=== PATIENT | female | born 1935 | race Caucasian/White ===

== ENCOUNTER 2016-05-09 20:31 | Emergency (ER) | payer OTHER, MEDICARE ==
[~2016-05-09] VITALS: Ht 170.2 cm; Wt 75.5 kg
[~2016-05-09 20:31] MED LIST: ASPIRIN EC325 MG PO; ASPIRIN81 M2 PO; ATORVASTATIN CA40 MG PO; BACTRIM,SEPT1 TABLET PO; CALCIUM + VITA1 EACH PO; CALCIUM CARB1 TABLET PO; CARAFATE1 GM PO; CIPRO500 MG PO; CIPROFLOXACIN500 M1 PO; DILAUDID2 MG PO; DOCUSATE SODIU100 MG PO; EDARBI80 MG PO; FENTANYL1 EAC1 TD; GABAPENTIN300 MG PO; IRBESARTAN150 MG PO; LOSARTAN POTAS100 MG PO; LOVENOX40 MG/0.4 SC; METRONIDAZOLE500 MG PO; MILK OF MAGNESI10 ML PO; MULTI-B-PLUS1 EACH PO; OXYCODONE HCL5 MG PO; PANTOPRAZOLE SO40 MG PO; POLYETHYLENE GL17 GM PO; PRAVASTATIN SOD80 MG PO; RANITIDINE HCL75 MG PO; REMOVE DURAGESIC TD; SENNA-TIME S T1 EACH PO; ST. JOSEPH ASPI81 MG PO; THERAGRAN1 TABLET PO; ZANTAC75 M1 PO; ZOFRAN4 MG PO; ZOFRAN4 MG/2 ML IV
[2016-05-09 20:57] LABS: HEMATOCRIT 42.7 % (36.0-46.0); MCH 29.9 PG (29.0-34.0); MCHC 33.7 G/DL (30.0-36.0); MCV 88.8 FL (83-99); MEAN PLAT.VOLUME 10.4 uM^3 (9.5-12.4); PLATELET COUNT 245 K/uL (156-360); RBC DIS.WIDTH-CV 13.4 % (11.8-14.6); RBC DIS.WIDTH-SD 42.7 % (39-53); RED BLOOD COUNT 4.81 M/uL (3.80-5.20); WHITE BLOOD COUNT 6.9 K/uL (4.1-10.2)
[2016-05-09 21:05] LABS: CHLORIDE 104 mEq/L (99-109); POTASSIUM 3.7 mEq/L (3.7-5.4); SODIUM 139 mEq/L (136-147)
[2016-05-09 21:07] LABS: GLUCOSE 110 mg/dL (70-99)
[2016-05-09 21:09] LABS: ANION GAP 11 MEQ/L (2-14)
[2016-05-09 21:11] LABS: ALKALINE PHOSPHATASE 81 IU/L (3-129); GFR ESTIMATE (CALCULATED) > 59 mL/min/
[2016-05-09 21:12] LABS: UREA NITROGEN (BUN) 11 mg/dL (9-23)
[2016-05-09 21:39] LABS: TROP-I INTERPRETATION NEGATIVE; TROPONIN-I < 0.01 ng/mL (0.0-0.30)
[2016-05-09 22:12] LABS: ADD MIUA? YES; BILIRUBIN NEGATIVE; BLOOD NEGATIVE; COLOR YELLOW ((YELLOW)); GLUCOSE (STRIP) NEGATIVE; KETONES NEGATIVE; LEUKOCYTES NEGATIVE; NITRITE NEGATIVE; PROTEIN (STRIP) NEGATIVE; SPECIFIC GRAVITY 1.005 (1.000-1.030); UROBILINOGEN 0.2 MG/DL (0.2-1.0)
[2016-05-09 22:18] LABS: TOTAL BILIRUBIN 0.8 MG/DL (0.0-1.0)
[2016-05-09 22:35] LABS: BACTERIA 2+; CASTS NONE SEEN /LPF; CRYSTALS NONE SEEN; EPITHELIAL CELLS 3+; MUCUS NONE SEEN; RED BLOOD CELLS 0-5 /HPF (0-5); UCUL ADDED? NO; WHITE BLOOD CELLS 0-5 /HPF (0-5)
[2016-05-09] MEDS ORDERED: KEFLEX500 MG PO (23:52)
[2016-05-10 00:34] VITALS: BP 121/54
[2016-05-10] MEDS ORDERED: REGLAN10 MG PO (10:45)
== END 2016-05-10 00:35 | disposition home or self-care (01) ==
LOC: EME → EDBD 20:31 → EME 05-10 00:35
DX: N39.0 Urinary tract infection, site not specified (principal); E86.0 Dehydration; R11.0 Nausea; E78.5 Hyperlipidemia, unspecified; I10 Essential (primary) hypertension; Z86.73 Personal history of transient ischemic attack (TIA), and cerebral infarction without residual deficits; Z96.652 Presence of left artificial knee joint
CPT/HCPCS: 74176; 80053; 81003; 84484; 85027; 93005; 99281; 99285; J2270; J2405; J7030

== ENCOUNTER 2016-06-11 18:32 | Emergency (ER) | payer OTHER, MEDICARE ==
[~2016-06-11] VITALS: Ht 170.2 cm; Wt 72.0 kg
[~2016-06-11 18:32] MED LIST changes: +KEFLEX500 MG PO; +REGLAN10 MG PO
[2016-06-11 19:09] LABS: MCH 30.7 PG (29.0-34.0); MCHC 34.9 G/DL (30.0-36.0); MCV 87.9 FL (83-99); MEAN PLAT.VOLUME 11.3 uM^3 (9.5-12.4); PLATELET COUNT 274 K/uL (156-360); RBC DIS.WIDTH-CV 14.2 % (11.8-14.6); RBC DIS.WIDTH-SD 44.8 % (39-53); RED BLOOD COUNT 4.89 M/uL (3.80-5.20); WHITE BLOOD COUNT 7.6 K/uL (4.1-10.2)
[2016-06-11 19:16] LABS: POTASSIUM ND MEQ/L (3.7-5.4)
[2016-06-11 19:30] LABS: CHLORIDE 105 mEq/L (99-109); SODIUM 138 mEq/L (136-147)
[2016-06-11 19:31] LABS: GLUCOSE 103 mg/dL (70-99)
[2016-06-11 19:33] LABS: ANION GAP 11 MEQ/L (2-14)
[2016-06-11 19:35] LABS: GFR ESTIMATE (CALCULATED) > 59 mL/min/
[2016-06-11 19:36] LABS: UREA NITROGEN (BUN) 9 mg/dL (9-23)
[2016-06-11 19:58] LABS: BILIRUBIN NEGATIVE; BLOOD NEGATIVE; COLOR YELLOW ((YELLOW)); GLUCOSE (STRIP) NEGATIVE; KETONES 5; LEUKOCYTES NEGATIVE; NITRITE NEGATIVE; PROTEIN (STRIP) NEGATIVE; SPECIFIC GRAVITY 1.006 (1.000-1.030); UROBILINOGEN 0.2 MG/DL (0.2-1.0)
[2016-06-11 20:08] LABS: ADD MIUA? YES; UCUL ADDED? NO
[2016-06-11 20:09] LABS: BACTERIA 3+ /HPF; CASTS NONE SEEN /LPF; CRYSTALS NONE SEEN; EPITHELIAL CELLS 1+ /HPF; MUCUS TRACE /LPF; RED BLOOD CELLS 0-5 /HPF (0-5); WHITE BLOOD CELLS 0-5 /HPF (0-5)
[2016-06-11 20:30] LABS: POTASSIUM 3.9 mEq/L (3.7-5.4)
[2016-06-11] MEDS ORDERED: ATIVAN0.5 MG PO (22:46)
[2016-06-11 23:14] VITALS: BP 118/68
== END 2016-06-11 23:15 | disposition home or self-care (01) ==
LOC: EME 18:32
PROVIDERS: Emergency Medicine
DX: R11.2 Nausea with vomiting, unspecified (principal); E78.5 Hyperlipidemia, unspecified; I10 Essential (primary) hypertension; Z86.73 Personal history of transient ischemic attack (TIA), and cerebral infarction without residual deficits
CPT/HCPCS: 80048; 81003; 84999; 85027; 99281; 99285; J2060; J2405; J7030

== ENCOUNTER 2016-07-24 08:25 | Observation (INO) | payer OTHER, MEDICARE ==
[~2016-07-24] VITALS: Ht 165.1 cm; Wt 67.2 kg
[~2016-07-24 08:25] MED LIST changes: +ATIVAN0.5 MG PO
[2016-07-24 09:53] LABS: EOSINOPHIL (%) 0.9 % (0-5); EOSINOPHIL COUNT 0.1 K/uL (0-0.3); HEMATOCRIT 42.6 % (36.0-46.0); IMMATURE GRANULOCYTE (%) 0.4 % (0.0-0.7); INSTRUMENT ABS NEUTROPHIL CT 3.7 K/uL; LYMPHOCYTE COUNT 1.5 K/uL (1.0-2.8); MCH 30.3 PG (29.0-34.0); MCHC 33.1 G/DL (30.0-36.0); MCV 91.4 FL (83-99); MEAN PLAT.VOLUME 10.5 uM^3 (9.5-12.4); MONOCYTE (%) 4.3 % (3-12); MONOCYTE COUNT 0.2 K/uL (0-0.8); NEUTROPHIL COUNT 3.7 K/uL (1.8-6.4); PLATELET COUNT 280 K/uL (156-360); RBC DIS.WIDTH-CV 13.3 % (11.8-14.6); RBC DIS.WIDTH-SD 44.7 % (39-53); RED BLOOD COUNT 4.66 M/uL (3.80-5.20); WHITE BLOOD COUNT 5.6 K/uL (4.1-10.2)
[2016-07-24 10:02] LABS: CHLORIDE 106 mEq/L (99-109); POTASSIUM 3.7 mEq/L (3.7-5.4); SODIUM 141 mEq/L (136-147)
[2016-07-24 10:04] LABS: GLUCOSE 102 mg/dL (70-99)
[2016-07-24 10:05] LABS: ANION GAP 12 MEQ/L (2-14)
[2016-07-24 10:08] LABS: GFR ESTIMATE (CALCULATED) > 59 mL/min/
[2016-07-24 10:09] LABS: UREA NITROGEN (BUN) 6 mg/dL (9-23)
[2016-07-24] MEDS ORDERED: ACIPHEX20 MG PO (13:32)
[2016-07-24] MEDS ORDERED: NUEDEXTA 20-101 EACH PO ×2 (13:33)
[2016-07-24] MEDS ORDERED: REXULTI0.5 MG PO (13:34)
[2016-07-24 16:11] VITALS: BP 140/67
[2016-07-24 19:32] VITALS: BP 138/90
[2016-07-25] VITALS (8 sets, daily range): BP systolic 98–143; BP diastolic 52–77
[2016-07-26 00:41] VITALS: BP 132/64
[2016-07-26 03:12] VITALS: BP 127/68
[2016-07-26 12:09] VITALS: BP 120/60
[2016-07-26 16:48] VITALS: BP 116/57
[2016-07-26 16:51] VITALS: BP 181/86
[2016-07-26] MEDS ORDERED: LORAZEPAM0.5 MG PO (19:17)
[2016-07-26] MEDS ORDERED: ANTIVERT25 MG PO (19:17)
[2016-07-26] MEDS ORDERED: LOSARTAN POTASS50 MG PO (19:17)
[2016-07-26] MEDS ORDERED: PREDNISONE10 M1 PO (19:17)
[2016-07-26 19:21] VITALS: BP 136/71
== END 2016-07-26 20:16 | disposition home or self-care (01) ==
LOC: EME → EDBD 08:25 → 5WEST 14:46 → EDOF 14:46 → 5WEST 14:46
PROVIDERS: Emergency Medicine
DX: R51 Headache (principal); R42 Dizziness and giddiness; I10 Essential (primary) hypertension; E78.5 Hyperlipidemia, unspecified; G62.9 Polyneuropathy, unspecified; F41.9 Anxiety disorder, unspecified; Z86.73 Personal history of transient ischemic attack (TIA), and cerebral infarction without residual deficits
CPT/HCPCS: 70450; 70551; 80048; 85025; 93005; 99281; 99285; G0378; G8978 GP CJ; G8979 GP CI; G8987 GO CJ; G8988 CI; J1650; J2405; J2920; J7030

== ENCOUNTER 2016-07-30 03:42 | Emergency (ER) | payer OTHER, MEDICARE ==
[~2016-07-30] VITALS: Ht 167.6 cm; Wt 68.4 kg
[~2016-07-30 03:42] MED LIST changes: +ACIPHEX20 MG PO; +ANTIVERT25 MG PO; +LORAZEPAM0.5 MG PO; +LOSARTAN POTASS50 MG PO; +NUEDEXTA 20-101 EACH PO; +PREDNISONE10 M1 PO; +REXULTI0.5 MG PO
[2016-07-30] MEDS ORDERED: ATIVAN1 MG PO (03:50)
[2016-07-30] MEDS ORDERED: NUEDEXTA 20-101 EACH PO (03:52)
[2016-07-30 04:31] LABS: MCH 29.8 PG (29.0-34.0); MCHC 33.3 G/DL (30.0-36.0); MCV 89.5 FL (83-99); MEAN PLAT.VOLUME 11.1 uM^3 (9.5-12.4); PLATELET COUNT 314 K/uL (156-360); RBC DIS.WIDTH-CV 13.2 % (11.8-14.6); RBC DIS.WIDTH-SD 43.3 % (39-53); RED BLOOD COUNT 5.14 M/uL (3.80-5.20); WHITE BLOOD COUNT 7.1 K/uL (4.1-10.2)
[2016-07-30 04:43] LABS: CHLORIDE 106 mEq/L (99-109); POTASSIUM 3.8 mEq/L (3.7-5.4); SODIUM 138 mEq/L (136-147)
[2016-07-30 04:44] LABS: GLUCOSE 115 mg/dL (70-99)
[2016-07-30 04:46] LABS: ANION GAP 12 MEQ/L (2-14)
[2016-07-30 04:48] LABS: GFR ESTIMATE (CALCULATED) > 59 mL/min/
[2016-07-30 04:49] LABS: UREA NITROGEN (BUN) 12 mg/dL (9-23)
[2016-07-30 04:53] LABS: TROP-I INTERPRETATION NEGATIVE; TROPONIN-I < 0.01 ng/mL (0.0-0.30)
[2016-07-30 04:55] LABS: ADD MIUA? NO; BILIRUBIN NEGATIVE; BLOOD NEGATIVE; COLOR STRAW ((YELLOW)); GLUCOSE (STRIP) NEGATIVE; KETONES NEGATIVE; LEUKOCYTES NEGATIVE; NITRITE NEGATIVE; PROTEIN (STRIP) NEGATIVE; SPECIFIC GRAVITY 1.004 (1.000-1.030); UCUL ADDED? NO; UROBILINOGEN 0.2 MG/DL (0.2-1.0)
[2016-07-30 08:25] VITALS: BP 133/63
== END 2016-07-30 08:52 | disposition home or self-care (01) ==
LOC: EME → EDBD 03:42 → EME 08:52
PROVIDERS: Emergency Medicine
DX: R42 Dizziness and giddiness (principal); I10 Essential (primary) hypertension; R11.0 Nausea; E78.5 Hyperlipidemia, unspecified; Z86.73 Personal history of transient ischemic attack (TIA), and cerebral infarction without residual deficits; Z96.652 Presence of left artificial knee joint
CPT/HCPCS: 70450; 71010; 80048; 81003; 84484; 85027; 85651; 93005; 99281; 99285; J7030

== ENCOUNTER 2016-08-31 10:00 | Emergency (ER) | payer OTHER, MEDICARE ==
[~2016-08-31] VITALS: Ht 162.6 cm; Wt 65.0 kg
[~2016-08-31 10:00] MED LIST changes: +ATIVAN1 MG PO
[2016-08-31 11:57] LABS: EOSINOPHIL (%) 0.2 % (0-5); HEMATOCRIT 46.3 % (36.0-46.0); IMMATURE GRANULOCYTE (%) 0.3 % (0.0-0.7); INSTRUMENT ABS NEUTROPHIL CT 4.3 K/uL; LYMPHOCYTE COUNT 1.1 K/uL (1.0-2.8); MCHC 32.6 G/DL (30.0-36.0); MEAN PLAT.VOLUME 10.4 uM^3 (9.5-12.4); MONOCYTE COUNT 0.4 K/uL (0-0.8); NEUTROPHIL (%) 74.6 % (45-76); NEUTROPHIL COUNT 4.3 K/uL (1.8-6.4); PLATELET COUNT 314 K/uL (156-360); RBC DIS.WIDTH-CV 13.1 % (11.8-14.6); RBC DIS.WIDTH-SD 44.2 % (39-53); RED BLOOD COUNT 5.03 M/uL (3.80-5.20); WHITE BLOOD COUNT 5.8 K/uL (4.1-10.2)
[2016-08-31 12:09] LABS: CHLORIDE 109 mEq/L (99-109); POTASSIUM 4.2 mEq/L (3.7-5.4); SODIUM 144 mEq/L (136-147)
[2016-08-31 12:11] LABS: GLUCOSE 119 mg/dL (70-99)
[2016-08-31 12:13] LABS: ANION GAP 10 MEQ/L (2-14); TOTAL BILIRUBIN 0.7 mg/dL (0.0-1.0)
[2016-08-31 12:15] LABS: ALKALINE PHOSPHATASE 96 IU/L (3-129); GFR ESTIMATE (CALCULATED) > 59 mL/min/
[2016-08-31 12:16] LABS: UREA NITROGEN (BUN) 4 mg/dL (9-23)
[2016-08-31 12:34] LABS: ADD MIUA? NO; BILIRUBIN NEGATIVE; BLOOD NEGATIVE; COLOR YELLOW ((YELLOW)); GLUCOSE (STRIP) NEGATIVE; KETONES 5; LEUKOCYTES NEGATIVE; NITRITE NEGATIVE; PROTEIN (STRIP) NEGATIVE; SPECIFIC GRAVITY 1.005 (1.000-1.030); UROBILINOGEN 0.2 MG/DL (0.2-1.0)
[2016-08-31 12:57] VITALS: BP 141/87
== END 2016-08-31 13:50 | disposition home or self-care (01) ==
LOC: EME 10:00
PROVIDERS: Emergency Medicine
DX: F41.9 Anxiety disorder, unspecified (principal); R25.1 Tremor, unspecified; G25.81 Restless legs syndrome; I10 Essential (primary) hypertension; E78.5 Hyperlipidemia, unspecified; G62.9 Polyneuropathy, unspecified; I49.9 Cardiac arrhythmia, unspecified; R26.2 Difficulty in walking, not elsewhere classified; Z86.73 Personal history of transient ischemic attack (TIA), and cerebral infarction without residual deficits; Z96.652 Presence of left artificial knee joint
CPT/HCPCS: 80053; 81003; 85025; 99281; 99284; G8987 CK; G8988 CI

== ENCOUNTER 2016-09-10 09:51 | Emergency (ER) | payer OTHER, MEDICARE ==
[~2016-09-10] VITALS: Ht 200.7 cm; Wt 63.2 kg
[2016-09-10 12:30] VITALS: BP 103/69
== END 2016-09-10 12:32 | disposition home or self-care (01) ==
LOC: EME 09:51 → OPR 09:51 → EME 12:32
DX: R09.89 Other specified symptoms and signs involving the circulatory and respiratory systems (principal); K22.2 Esophageal obstruction; K21.9 Gastro-esophageal reflux disease without esophagitis; Z86.73 Personal history of transient ischemic attack (TIA), and cerebral infarction without residual deficits
CPT/HCPCS: 70360; 99281; 99283

== ENCOUNTER 2016-11-12 13:56 | Day surgery (SDC) | payer OTHER, MEDICARE ==
[~2016-11-12] VITALS: Ht 167.6 cm; Wt 61.3 kg
[~2016-11-12 13:56] MED LIST changes: +ORAZINC220 MG PO; +ULTRAM50 MG PO; +VITAMIN B-6100 MG PO; +VITAMIN C500 M1 PO
[2016-11-12 14:56] VITALS: BP 118/59
[2016-11-12 17:27] VITALS: BP 134/58
[2016-11-12 17:59] VITALS: BP 137/63
== END 2016-11-12 18:25 | disposition home or self-care (01) ==
LOC: SDC 13:56
PROC: 01N50ZZ Release Median Nerve, Open Approach (ICD-10-PCS; principal; 2016-11-12)
DX: G56.01 Carpal tunnel syndrome, right upper limb (principal); G56.02 Carpal tunnel syndrome, left upper limb; I10 Essential (primary) hypertension; Z86.73 Personal history of transient ischemic attack (TIA), and cerebral infarction without residual deficits; E78.5 Hyperlipidemia, unspecified; G62.9 Polyneuropathy, unspecified; Z82.49 Family history of ischemic heart disease and other diseases of the circulatory system
CPT/HCPCS: S0020

== ENCOUNTER 2017-01-14 18:44 | Inpatient (IN) | payer OTHER, MEDICARE ==
[~2017-01-14] VITALS: Ht 167.6 cm; Wt 59.6 kg
[~2017-01-14 18:44] MED LIST changes: +DEXILANT60 MG PO
[2017-01-14 20:05] LABS: HEMATOCRIT 41.7 % (36.0-46.0); MCH 30.5 PG (29.0-34.0); MCHC 33.3 G/DL (30.0-36.0); MCV 91.4 FL (83-99); MEAN PLAT.VOLUME 11.3 uM^3 (9.5-12.4); PLATELET COUNT 194 K/uL (156-360); RBC DIS.WIDTH-CV 13.2 % (11.8-14.6); RBC DIS.WIDTH-SD 44.4 % (39-53); RED BLOOD COUNT 4.56 M/uL (3.80-5.20)
[2017-01-14 20:14] LABS: CHLORIDE 105 mEq/L (99-109); POTASSIUM 3.5 mEq/L (3.7-5.4); SODIUM 141 mEq/L (136-147)
[2017-01-14 20:16] LABS: GLUCOSE 97 mg/dL (70-99)
[2017-01-14 20:17] LABS: ANION GAP 12 MEQ/L (2-14)
[2017-01-14 20:18] LABS: TOTAL BILIRUBIN 0.7 mg/dL (0.0-1.0)
[2017-01-14 20:19] LABS: ALKALINE PHOSPHATASE 66 IU/L (3-129)
[2017-01-14 20:20] LABS: GFR ESTIMATE (CALCULATED) > 59 mL/min/
[2017-01-14 20:21] LABS: UREA NITROGEN (BUN) 5 mg/dL (9-23)
[2017-01-14] MEDS ORDERED: COZAAR50 MG PO (21:33)
[2017-01-14] MEDS ORDERED: METOCLOPRAMIDE H5 MG PO (21:33)
[2017-01-14] MEDS ORDERED: CIPRO500 MG PO (21:34)
[2017-01-14] MEDS ORDERED: FLAGYL500 MG PO (21:34)
[2017-01-14] MEDS ORDERED: FETZIMA20 MG PO (21:34)
[2017-01-14 23:05] VITALS: BP 143/70
[2017-01-15 04:02] VITALS: BP 138/74
[2017-01-15 07:53] VITALS: BP 117/72
[2017-01-15 11:37] VITALS: BP 127/60
[2017-01-15 15:30] VITALS: BP 138/66
[2017-01-15 19:30] VITALS: BP 132/69
[2017-01-16] VITALS: BP 154/70
[2017-01-16 04:02] VITALS: BP 106/57
[2017-01-16 07:38] LABS: ANION GAP 10 MEQ/L (2-14); CHLORIDE 111 MEQ/L (99-109); GFR ESTIMATE (CALCULATED) > 59 mL/min/; SAMPLE HEMOLYSIS CHECK 0; SAMPLE ICTERIC CHECK 0; SAMPLE LIPEMIA CHECK 0; SODIUM 144 MEQ/L (136-147); UREA NITROGEN (BUN) 3 mg/dL (9-23)
[2017-01-16 07:41] LABS: GLUCOSE 152 mg/dL (70-99)
[2017-01-16 07:46] VITALS: BP 124/60
[2017-01-16 11:28] VITALS: BP 132/64
[2017-01-16 15:46] VITALS: BP 133/89
[2017-01-16 19:38] VITALS: BP 138/72
[2017-01-17 00:19] VITALS: BP 119/58
[2017-01-17 03:12] VITALS: BP 101/56
[2017-01-17 07:22] LABS: EOSINOPHIL (%) 0 % (0-5); HEMATOCRIT 41.5 % (36.0-46.0); IMMATURE GRANULOCYTE (%) 0.5 % (0.0-0.7); IMMATURE GRANULOCYTE COUNT 0.1 K/uL; INSTRUMENT ABS NEUTROPHIL CT 11.1 K/uL; LYMPHOCYTE COUNT 0.6 K/uL (1.0-2.8); MCH 30.1 PG (29.0-34.0); MCHC 32.5 G/DL (30.0-36.0); MCV 92.6 FL (83-99); MEAN PLAT.VOLUME 11.2 uM^3 (9.5-12.4); MONOCYTE (%) 2.6 % (3-12); MONOCYTE COUNT 0.3 K/uL (0-0.8); NEUTROPHIL (%) 91.6 % (45-76); NEUTROPHIL COUNT 11.1 K/uL (1.8-6.4); PLATELET COUNT 197 K/uL (156-360); RBC DIS.WIDTH-CV 13.8 % (11.8-14.6); RBC DIS.WIDTH-SD 46.4 % (39-53); RED BLOOD COUNT 4.48 M/uL (3.80-5.20); WHITE BLOOD COUNT 12.2 K/uL (4.1-10.2)
[2017-01-17 07:48] LABS: ANION GAP 3 MEQ/L (2-14); CHLORIDE 109 MEQ/L (99-109); GFR ESTIMATE (CALCULATED) > 59 mL/min/; GLUCOSE 148 mg/dL (70-99); POTASSIUM 4.6 MEQ/L (3.7-5.4); SAMPLE HEMOLYSIS CHECK 0; SAMPLE ICTERIC CHECK 0; SAMPLE LIPEMIA CHECK 0; SODIUM 141 MEQ/L (136-147); UREA NITROGEN (BUN) 6 mg/dL (9-23)
[2017-01-17 15:05] LABS: ADD MIUA? YES; BILIRUBIN NEGATIVE; BLOOD NEGATIVE; COLOR YELLOW ((YELLOW)); GLUCOSE (STRIP) NEGATIVE; KETONES NEGATIVE; LEUKOCYTES TRACE; NITRITE NEGATIVE; PROTEIN (STRIP) NEGATIVE; SPECIFIC GRAVITY 1.014 (1.000-1.030); UROBILINOGEN 0.2 MG/DL (0.2-1.0)
[2017-01-17 15:34] LABS: BACTERIA 2+ /HPF; EPITHELIAL CELLS 1+ /HPF; MUCUS TRACE /LPF; RED BLOOD CELLS 0-5 /HPF (0-5); WHITE BLOOD CELLS 0-5 /HPF (0-5)
[2017-01-17 16:59] VITALS: BP 162/74
[2017-01-17 23:34] VITALS: BP 145/70
[2017-01-18 07:15] VITALS: BP 126/58
[2017-01-18 16:53] VITALS: BP 133/62
[2017-01-18 23:38] VITALS: BP 125/71
[2017-01-19 07:35] VITALS: BP 155/69
[2017-01-19 08:48] LABS: EOSINOPHIL (%) 0 % (0-5); HEMATOCRIT 48.8 % (36.0-46.0); IMMATURE GRANULOCYTE (%) 0.3 % (0.0-0.7); INSTRUMENT ABS NEUTROPHIL CT 8.5 K/uL; LYMPHOCYTE COUNT 0.5 K/uL (1.0-2.8); MCH 30.4 PG (29.0-34.0); MCV 92.1 FL (83-99); MONOCYTE (%) 5.8 % (3-12); MONOCYTE COUNT 0.6 K/uL (0-0.8); NEUTROPHIL (%) 88.7 % (45-76); NEUTROPHIL COUNT 8.5 K/uL (1.8-6.4); PLATELET COUNT 210 K/uL (156-360); RBC DIS.WIDTH-CV 13.6 % (11.8-14.6); RBC DIS.WIDTH-SD 46.5 % (39-53); WHITE BLOOD COUNT 9.6 K/uL (4.1-10.2)
[2017-01-19 09:03] LABS: ANION GAP 8 MEQ/L (2-14); CHLORIDE 106 MEQ/L (99-109); POTASSIUM 4.2 MEQ/L (3.7-5.4); SAMPLE HEMOLYSIS CHECK 0; SAMPLE ICTERIC CHECK 0; SAMPLE LIPEMIA CHECK 0; SODIUM 142 MEQ/L (136-147)
[2017-01-19 09:08] LABS: GFR ESTIMATE (CALCULATED) > 59 mL/min/; GLUCOSE 121 mg/dL (70-99); UREA NITROGEN (BUN) 8 mg/dL (9-23)
[2017-01-19 14:45] VITALS: BP 145/70
[2017-01-19 15:40] VITALS: BP 140/61
[2017-01-20 00:18] VITALS: BP 136/63
[2017-01-20 08:55] VITALS: BP 155/72
[2017-01-20 12:18] VITALS: BP 139/67
[2017-01-20 16:45] VITALS: BP 137/67
[2017-01-20 20:00] VITALS: BP 136/63
[2017-01-20 23:38] VITALS: BP 120/59
[2017-01-21 04:15] VITALS: BP 145/67
[2017-01-21 07:46] VITALS: BP 133/66
[2017-01-21] MEDS ORDERED: XIFAXAN550 MG PO (12:59)
[2017-01-21] MEDS ORDERED: ZOLPIDEM TARTRAT5 MG PO (13:00)
[2017-01-21] MEDS ORDERED: BENTYL20 MG PO (13:00)
[2017-01-21] MEDS ORDERED: PANTOPRAZOLE SO40 MG PO (13:01)
[2017-01-21] MEDS ORDERED: DOCUSATE SODIU100 MG PO (13:01)
[2017-01-21] MEDS ORDERED: PREDNISONE10 MG PO (13:02)
[2017-01-21 15:13] VITALS: BP 164/65
== END 2017-01-21 19:54 | DRG 392 ==
LOC: EME 18:44 → EDOF 21:45 → 2EAST 21:45 → ENRESERV 21:49 → 2EAST 22:44
PROVIDERS: Family Medicine; Internal Medicine; Specialist
DX: K29.70 Gastritis, unspecified, without bleeding (principal); K52.9 Noninfective gastroenteritis and colitis, unspecified; K31.84 Gastroparesis; D12.5 Benign neoplasm of sigmoid colon; D12.4 Benign neoplasm of descending colon; K27.9 Peptic ulcer, site unspecified, unspecified as acute or chronic, without hemorrhage or perforation; K31.7 Polyp of stomach and duodenum; K44.9 Diaphragmatic hernia without obstruction or gangrene; K64.8 Other hemorrhoids; R13.10 Dysphagia, unspecified; R63.0 Anorexia; R63.4 Abnormal weight loss; R14.0 Abdominal distension (gaseous); E86.0 Dehydration; D64.9 Anemia, unspecified; K21.9 Gastro-esophageal reflux disease without esophagitis; G62.9 Polyneuropathy, unspecified; R44.3 Hallucinations, unspecified; I49.9 Cardiac arrhythmia, unspecified; G89.29 Other chronic pain; M25.552 Pain in left hip; I10 Essential (primary) hypertension; E78.5 Hyperlipidemia, unspecified; F41.9 Anxiety disorder, unspecified; F32.9 Major depressive disorder, single episode, unspecified; Z99.3 Dependence on wheelchair; Z86.73 Personal history of transient ischemic attack (TIA), and cerebral infarction without residual deficits; Z96.652 Presence of left artificial knee joint
CPT/HCPCS: 74174; 74245; 80048; 80053; 81003; 85025; 85027; 85651; 86038; 88305; 88342 TC; 97530 GP; 99281; 99285; J0744; J1650; J2405; J2765; J2920; J3010; J7030; J7042; S0028; S0030

== ENCOUNTER 2017-07-28 16:23 | Emergency (ER) | payer OTHER, MEDICARE ==
[~2017-07-28] VITALS: Ht 170.2 cm; Wt 56.2 kg
[~2017-07-28 16:23] MED LIST changes: +BENTYL20 MG PO; +COZAAR50 MG PO; +FETZIMA20 MG PO; +FLAGYL500 MG PO; +METOCLOPRAMIDE H5 MG PO; +PREDNISONE10 MG PO; +XIFAXAN550 MG PO; +ZOLPIDEM TARTRAT5 MG PO
[2017-07-28 19:25] VITALS: BP 120/61
== END 2017-07-28 19:32 ==
LOC: EME 16:23
DX: S01.111A Laceration without foreign body of right eyelid and periocular area, initial encounter (principal); S61.216A Laceration without foreign body of right little finger without damage to nail, initial encounter; W05.0XXA Fall from non-moving wheelchair, initial encounter; Y92.129 Unspecified place in nursing home as the place of occurrence of the external cause; I10 Essential (primary) hypertension; E78.5 Hyperlipidemia, unspecified; F41.9 Anxiety disorder, unspecified; F32.9 Major depressive disorder, single episode, unspecified; F03.90 Unspecified dementia, unspecified severity, without behavioral disturbance, psychotic disturbance, mood disturbance, and anxiety; G62.9 Polyneuropathy, unspecified; Z90.49 Acquired absence of other specified parts of digestive tract; Z86.73 Personal history of transient ischemic attack (TIA), and cerebral infarction without residual deficits; Z96.652 Presence of left artificial knee joint; Z88.1 Allergy status to other antibiotic agents; Z88.8 Allergy status to other drugs, medicaments and biological substances
CPT/HCPCS: 70450; 99281; 99284; J2060

== ENCOUNTER 2017-08-02 12:16 | Emergency (ER) | payer OTHER, MEDICARE ==
[~2017-08-02] VITALS: Ht 152.4 cm; Wt 59.0 kg
[2017-08-02 13:34] LABS: APPEARANCE SL.HAZY ((CLEAR)); BILIRUBIN NEGATIVE; BLOOD NEGATIVE; COLOR YELLOW ((YELLOW)); GLUCOSE (STRIP) NEGATIVE; KETONES NEGATIVE; LEUKOCYTES NEGATIVE; NITRITE NEGATIVE; PROTEIN (STRIP) NEGATIVE; UROBILINOGEN 0.2 MG/DL (0.2-1.0)
[2017-08-02 13:38] LABS: HEMOGLOBIN 11.4 G/DL (11.9-15.5); MCH 29.8 PG (29.0-34.0); MCHC 32.6 G/DL (30.0-36.0); MCV 91.6 FL (83-99); PLATELET COUNT 166 K/uL (156-360); RBC DIS.WIDTH-CV 13.6 % (11.8-14.6); RBC DIS.WIDTH-SD 46.3 % (39-53); RED BLOOD COUNT 3.82 M/uL (3.80-5.20); WHITE BLOOD COUNT 3.9 K/uL (4.1-10.2)
[2017-08-02 13:38] LABS: BACTERIA RARE /HPF; EPITHELIAL CELLS 2+ /HPF; MUCUS TRACE /LPF; RED BLOOD CELLS 0-5 /HPF (0-5); UCUL ADDED? NO; URIC ACID CRYSTALS 1+ /HPF; WHITE BLOOD CELLS 0-5 /HPF (0-5)
[2017-08-02 13:49] LABS: CHLORIDE 110 mEq/L (99-109); POTASSIUM 4.1 mEq/L (3.7-5.4); SODIUM 143 mEq/L (136-147)
[2017-08-02 13:51] LABS: GLUCOSE 84 mg/dL (70-99)
[2017-08-02 13:54] LABS: CREATININE 0.7 mg/dL (0.6-1.3); GFR ESTIMATE (CALCULATED) > 59 mL/min/
[2017-08-02 13:55] LABS: UREA NITROGEN (BUN) 11 mg/dL (9-23)
[2017-08-02 15:41] VITALS: BP 108/56
[2017-08-03] MEDS ORDERED: BACTRIM,SEPT1 TABLET PO (18:23)
[2017-08-03] MEDS ORDERED: SEROQUEL12.5 MG PO (18:25)
== END 2017-08-02 15:42 ==
LOC: EME 12:16
PROVIDERS: Emergency Medicine
DX: F03.90 Unspecified dementia, unspecified severity, without behavioral disturbance, psychotic disturbance, mood disturbance, and anxiety (principal); R41.0 Disorientation, unspecified; I10 Essential (primary) hypertension; E78.5 Hyperlipidemia, unspecified; G62.9 Polyneuropathy, unspecified; F41.9 Anxiety disorder, unspecified; F32.9 Major depressive disorder, single episode, unspecified; Z86.73 Personal history of transient ischemic attack (TIA), and cerebral infarction without residual deficits; Z90.49 Acquired absence of other specified parts of digestive tract; Z88.1 Allergy status to other antibiotic agents; Z88.8 Allergy status to other drugs, medicaments and biological substances
CPT/HCPCS: 70450; 80048; 81003; 85027; 99281; 99284; J1630

== ENCOUNTER 2017-08-03 14:27 | Emergency (ER) | payer OTHER, MEDICARE ==
[~2017-08-03] VITALS: Ht 162.6 cm; Wt 54.7 kg
[2017-08-03 15:21] LABS: BASOPHIL (%) 0.4 % (0-1); EOSINOPHIL (%) 0.2 % (0-5); HEMATOCRIT 35.9 % (36.0-46.0); HEMOGLOBIN 11.5 G/DL (11.9-15.5); IMMATURE GRANULOCYTE (%) 0.2 % (0.0-0.7); LYMPHOCYTE (%) 18.8 % (15-42); MCH 29.6 PG (29.0-34.0); MCV 92.5 FL (83-99); MONOCYTE (%) 6.8 % (3-12); MONOCYTE COUNT 0.4 K/uL (0-0.8); NEUTROPHIL (%) 73.6 % (45-76); NEUTROPHIL COUNT 3.9 K/uL (1.8-6.4); PLATELET COUNT 191 K/uL (156-360); RBC DIS.WIDTH-CV 13.6 % (11.8-14.6); RBC DIS.WIDTH-SD 46.4 % (39-53); RED BLOOD COUNT 3.88 M/uL (3.80-5.20); WHITE BLOOD COUNT 5.3 K/uL (4.1-10.2)
[2017-08-03 15:29] LABS: ALBUMIN 3.3 g/dL (3.2-4.8); CHLORIDE 108 mEq/L (99-109); POTASSIUM 4.3 mEq/L (3.7-5.4); SODIUM 143 mEq/L (136-147)
[2017-08-03 15:30] LABS: APPEARANCE CLOUDY ((CLEAR)); BILIRUBIN NEGATIVE; BLOOD NEGATIVE; COLOR YELLOW ((YELLOW)); GLUCOSE (STRIP) NEGATIVE; KETONES NEGATIVE; LEUKOCYTES MODERATE; NITRITE NEGATIVE; PROTEIN (STRIP) NEGATIVE; SPECIFIC GRAVITY 1.021 (1.000-1.030); UROBILINOGEN 0.2 MG/DL (0.2-1.0)
[2017-08-03 15:31] LABS: TOTAL PROTEIN 5.5 g/dL (6.4-8.3)
[2017-08-03 15:33] LABS: TOTAL BILIRUBIN 0.4 mg/dL (0.0-1.0)
[2017-08-03 15:34] LABS: SERUM ETHYL ALCOHOL < 10 mg/dL
[2017-08-03 15:35] LABS: BACTERIA RARE /HPF; EPITHELIAL CELLS 2+ /HPF; MUCUS TRACE /LPF; RED BLOOD CELLS 0-5 /HPF (0-5); UCUL ADDED? YES
[2017-08-03 15:35] LABS: ALKALINE PHOSPHATASE 91 IU/L (3-129); CREATININE 0.8 mg/dL (0.6-1.3); GFR ESTIMATE (CALCULATED) > 59 mL/min/
[2017-08-03 15:36] LABS: AST (GOT) 15 IU/L (2-34); UREA NITROGEN (BUN) 15 mg/dL (9-23)
[2017-08-03 15:38] LABS: ALT (GPT) 7 IU/L (3-49)
[2017-08-03 15:41] LABS: GLUCOSE 111 mg/dL (70-99)
[2017-08-03 15:43] LABS: AMPHETAMINE NEGATIVE (500 ng/mL); BARBITURATES NEGATIVE (200 ng/mL); BENZODIAZEPINES PRESUMPTIVE POSITIVE (150 ng/mL); BUPRENORPHINE NEGATIVE (10 ng/mL); COCAINE NEGATIVE (150 ng/mL); METHADONE NEGATIVE (200 ng/mL); METHAMPHETAMINE NEGATIVE (500 ng/mL); OPIATES (MORPHINE) NEGATIVE (100 ng/mL); OXYCODONE NEGATIVE (100 ng/mL); PHENCYCLIDINE NEGATIVE (25 ng/mL); PROPOXYPHENE NEGATIVE (300 ng/mL); THC CANNABINOIDS NEGATIVE (50 ng/mL); TRICYCLIC ANTIDEPRESSANTS NEGATIVE (300 ng/mL)
[2017-08-03 16:18] LABS: BENZODIAZEPINES, URINE SCREEN POSITIVE (200 ng/mL)
[2017-08-03 16:43] LABS: THYROTROPIN (TSH) 1.9 MIU/L (0.4-5.5)
[2017-08-03] MEDS ORDERED: BACTRIM,SEPT1 TABLET PO (18:23)
[2017-08-03] MEDS ORDERED: SEROQUEL12.5 MG PO (18:25)
[2017-08-03 19:14] VITALS: BP 113/67
== END 2017-08-03 19:17 ==
LOC: EME 14:27
PROVIDERS: Emergency Medicine
PROC: 0HQ1XZZ Repair Face Skin, External Approach (ICD-10-PCS; principal; 2017-08-03)
DX: S01.81XA Laceration without foreign body of other part of head, initial encounter (principal); F03.90 Unspecified dementia, unspecified severity, without behavioral disturbance, psychotic disturbance, mood disturbance, and anxiety; N39.0 Urinary tract infection, site not specified; W07.XXXA Fall from chair, initial encounter; Y92.129 Unspecified place in nursing home as the place of occurrence of the external cause; F32.9 Major depressive disorder, single episode, unspecified; R45.1 Restlessness and agitation; F41.9 Anxiety disorder, unspecified; I10 Essential (primary) hypertension; E78.5 Hyperlipidemia, unspecified; Z86.73 Personal history of transient ischemic attack (TIA), and cerebral infarction without residual deficits; Z96.652 Presence of left artificial knee joint
CPT/HCPCS: 70450; 71046; 72125; 72170; 80053; 81003; 84443; 84999; 85025; 87086; 90839; 99281; 99285; G0480; J1630

== ENCOUNTER 2017-11-14 22:59 | Emergency (ER) | payer OTHER, MEDICARE ==
[~2017-11-14] VITALS: Ht 170.2 cm; Wt 61.9 kg
[~2017-11-14 22:59] MED LIST changes: +SEROQUEL12.5 MG PO
[2017-11-15 00:48] LABS: HEMATOCRIT 36.4 % (36.0-46.0); MCH 30.9 PG (29.0-34.0); MCV 93.8 FL (83-99); RBC DIS.WIDTH-CV 13.3 % (11.8-14.6); RBC DIS.WIDTH-SD 45.7 % (39-53); RED BLOOD COUNT 3.88 M/uL (3.80-5.20); WHITE BLOOD COUNT 4.2 K/uL (4.1-10.2)
[2017-11-15 01:02] LABS: CHLORIDE 106 mEq/L (99-109); POTASSIUM 4.2 mEq/L (3.7-5.4); SODIUM 140 mEq/L (136-147)
[2017-11-15 01:04] LABS: GLUCOSE 90 mg/dL (70-99)
[2017-11-15 01:07] LABS: CREATININE 0.7 mg/dL (0.6-1.3); GFR ESTIMATE (CALCULATED) > 59 mL/min/
[2017-11-15 01:08] LABS: UREA NITROGEN (BUN) 14 mg/dL (9-23)
[2017-11-15 01:08] LABS: APPEARANCE CLEAR ((CLEAR)); BILIRUBIN NEGATIVE; BLOOD NEGATIVE; COLOR YELLOW ((YELLOW)); GLUCOSE (STRIP) NEGATIVE; KETONES NEGATIVE; LEUKOCYTES SMALL; NITRITE NEGATIVE; PROTEIN (STRIP) NEGATIVE; SPECIFIC GRAVITY 1.015 (1.000-1.030); UROBILINOGEN 0.2 MG/DL (0.2-1.0)
[2017-11-15 01:17] LABS: TROP-I INTERPRETATION NEGATIVE; TROPONIN-I < 0.01 ng/mL (0.0-0.30)
[2017-11-15 01:22] LABS: BACTERIA NONE SEEN /HPF; EPITHELIAL CELLS RARE /HPF; MUCUS NONE SEEN /LPF; RED BLOOD CELLS 0-5 /HPF (0-5); UCUL ADDED? NO; WHITE BLOOD CELLS 0-5 /HPF (0-5)
[2017-11-15 02:30] VITALS: BP 117/60
[2017-11-15 02:32] LABS: PLAT.SUFFICIENCY ADEQUATE; PLATELET COUNT 181 K/uL (156-360)
== END 2017-11-15 02:40 ==
LOC: EME → EDBD 22:59 → EME 22:59
PROVIDERS: Emergency Medicine
PROC: 0HQ1XZZ Repair Face Skin, External Approach (ICD-10-PCS; principal; 2017-11-14)
DX: S01.81XA Laceration without foreign body of other part of head, initial encounter (principal); S50.02XA Contusion of left elbow, initial encounter; S60.512A Abrasion of left hand, initial encounter; M79.602 Pain in left arm; W19.XXXA Unspecified fall, initial encounter; F03.90 Unspecified dementia, unspecified severity, without behavioral disturbance, psychotic disturbance, mood disturbance, and anxiety; M85.88 Other specified disorders of bone density and structure, other site; M25.78 Osteophyte, vertebrae; M47.892 Other spondylosis, cervical region; I10 Essential (primary) hypertension; Z86.73 Personal history of transient ischemic attack (TIA), and cerebral infarction without residual deficits
CPT/HCPCS: 70450; 71045; 72125; 72170; 73080; 80048; 81003; 84484; 85027; 93005; 99281; 99284